=== PATIENT | female | born 1955 | race Caucasian/White ===

== ENCOUNTER 2024-03-20 02:16 | Outpatient (CLI) | payer MEDICARE, BC, SELFPAY ==
--- NOTE | 2024-03-20 07:45 | DI.US_ITS ---
Exam(s) US PELVIS TRANSVAGINAL EXAM: US PELVIS TRANSVAGINAL CLINICAL HISTORY: thickened endometrium on prior sono, R93.89. TECHNIQUE: Transabdominal and transvaginal pelvic ultrasound was performed using standard protocol. COMPARISON: No exams were available for comparison FINDINGS: UTERUS: Position: Anteverted. Size: 7.6 long by 3.5 AP by 4.1 transverse cm Endometrium: 0.6 cm. The endometrial stripe is thickened in this postmenopausal patient. Myometrium: Unremarkable. Cervix: Unremarkable. OVARIES: The ovaries were not visualized transabdominally or transvaginally. No suspicious adnexal ma sses are seen sonographically. CUL-DE-SAC: Free fluid: None. Other: None. IMPRESSION: 1. The endometrial stripe measures 0.6 cm which is thickened in this postmenopausal patient. 2. The ovaries were not visualized on this examination. No suspicious adnexal masses are seen sonogra phically. DATA REPOSITORY:
== END 2024-03-20 02:36 ==
LOC: DI 02:16
PROVIDERS: Visit Provider Obstetrics & Gynecology
DX: R93.89 Abnormal findings on diagnostic imaging of other specified body structures (principal)
CPT/HCPCS: 76830; 76856